=== PATIENT | female | born 1940 | race Caucasian/White ===

== ENCOUNTER 2019-10-09 05:37 | Inpatient (IN) | payer SELFPAY ==
[~2019-10-09] VITALS: Ht 149.9 cm; Wt 68.5 kg
[2019-10-09] MEDS ORDERED: SODIUM CHLORIDE 0.9% 1,000 ML IV ONE (06:25)
[2019-10-09 06:36] LABS: EOSINOPHILS % 3.1 % (0.0-5.0); HEMATOCRIT. 36.8 % (36.0-48.0); HEMOGLOBIN. 12.4 g/dL (12.0-16.0); MEAN CORPUSCULAR HEMOGLOBIN 28.7 pg (28.0-32.0); MEAN CORPUSCULAR VOLUME 85.3 fL (81.0-99.0); MEAN PLATELET VOLUME 9.5 fl (7.4-10.4); MONOCYTES % 7.3 % (2.0-8.0); NEUTROPHILS % 60.6 % (40.0-76.0); PLATELET 275 x1000/uL (130-400); RED BLOOD CELL COUNT 4.31 mill/uL (4.2-5.4)
[2019-10-09 06:38] LABS: CHLORIDE 111 mEq/L (98-107)
[2019-10-09 06:42] LABS: ETHANOL BLOOD < 10 mg/dL
[2019-10-09 06:57] LABS: CLARITY URINE CLEAR (CLEAR); COLOR URINE YELLOW (YELLOW); KETONES URINE NEGATIVE (NEGATIVE); LEUKOCYTE ESTERASE URINE 1+ (NEGATIVE); NITRITE URINE POSITIVE (NEGATIVE); OCCULT BLOOD URINE NEGATIVE (NEGATIVE); PH URINE 5.5 (4.5-8.0); PROTEIN URINE NEGATIVE (NEGATIVE); SPECIFIC GRAVITY URINE 1.006 (1.005-1.030); UROBILINOGEN URINE 0.2 E.U./dL (0.2-1.0)
[2019-10-09 07:13] LABS: *AMPHETAMINES SCREEN URINE NEGATIVE (NEGATIVE); *BENZODIAZEPINES SCREEN URINE NEGATIVE (NEGATIVE); *COCAINE SCREEN URINE NEGATIVE (NEGATIVE); METHADONE URINE SCREEN NEGATIVE (NEGATIVE); OPIATES URINE SCREEN NEGATIVE (NEGATIVE); PHENCYCLIDINE URINE SCREEN NEGATIVE (NEGATIVE)
[2019-10-09 07:14] LABS: *BARBITURATES SCREEN URINE NEGATIVE (NEGATIVE); CANNABINOID URINE SCREEN NEGATIVE (NEGATIVE)
[2019-10-09] MEDS ORDERED: PIPERACILLIN/TAZ 3.375G PREMIX 50 ML IV ONE (07:15)
[2019-10-09] MEDS ORDERED: SODIUM CHLORIDE 0.9% 1000ML BAG (SEPSIS BOLUS) IV ONE (07:15)
[2019-10-09] MEDS ORDERED: VANCOMYCIN 1 G PREMIX 200 ML IV ONE (07:15)
[2019-10-09 09:24] LABS: PROTHROMBIN TIME 10.6 sec (9.6-11.0)
[2019-10-09 11:10] VITALS: BP 152/75
[2019-10-09 11:17] VITALS: BP 152/75
[2019-10-09] MEDS ORDERED: GUAIFENESIN 200MG/10ML SUGAR FREE UDC PO PRN (11:30)
[2019-10-09] MEDS ORDERED: DOCUSATE SODIUM 100MG CAPSULE PO PRN (11:30)
[2019-10-09] MEDS ORDERED: ONDANSETRON HCL 4MG/2ML INJ IV PRN (11:30)
[2019-10-09] MEDS ORDERED: MAGNESIUM/ALUMINUM HYDROXIDE/SIMETHICONE 30ML UDC PO PRN (11:30)
[2019-10-09] MEDS ORDERED: NITROGLYCERIN 0.4MG TABLET SL SL PRN (11:30)
[2019-10-09] MEDS ORDERED: KETOROLAC 15MG/ML VIAL IV PRN (11:30)
[2019-10-09] MEDS ORDERED: CLONIDINE 0.1MG TABLET PO PRN (11:30)
[2019-10-09] MEDS ORDERED: IPRATROPIUM/ALBUTEROL 0.5-3(2.5)MG/3ML NEB ORI PRN (11:30)
[2019-10-09] MEDS ORDERED: ACETAMINOPHEN 325MG TABLET PO PRN ×2 (11:30)
[2019-10-09] MEDS ORDERED: ASPIRIN 325MG EC TABLET PO SCH (12:00)
[2019-10-09] MEDS: SODIUM CHLORIDE 0.9% 1,000 ML IV SCH ×2 (12:01→23:40)
[2019-10-09] MEDS: ENOXAPARIN 40MG/0.4ML SYR SUBCUT SCH (12:02)
[2019-10-09] MEDS: ZINC SULFATE 220 MG ( 50 ) CAPSULE PO SCH (12:03)
[2019-10-09] MEDS: METOPROLOL TARTRATE 25MG TABLET PO SCH ×2 (12:03→21:33)
[2019-10-09] MEDS: ASCORBIC ACID 500 MG TABLET PO SCH ×2 (12:04→21:34)
[2019-10-09 12:13] LABS: FOLIC ACID (FOLATE) SERUM 15.3 ng/mL (>5.38)
[2019-10-09] MEDS: CEFTRIAXONE 1 G PREMIX 50 ML IV SCH (13:28)
[2019-10-09] MEDS ORDERED: LEVOFLOXACIN 500MG PREMIX 100 ML IV NR (14:00)
[2019-10-09 16:00] VITALS: BP 151/88
[2019-10-09 16:44] LABS: CREATINE KINASE MB FRACTION < 1.0 ng/mL (0.5-3.6)
[2019-10-09 16:49] LABS: CREATINE KINASE 52 IU/L (26-192)
[2019-10-09 20:00] VITALS: BP 149/57
[2019-10-09] MEDS: FAMOTIDINE 20MG TABLET PO SCH (21:34)
[2019-10-09 23:38] LABS: CREATINE KINASE 58 IU/L (26-192)
[2019-10-09 23:39] LABS: CREATINE KINASE MB FRACTION < 1.0 ng/mL (0.5-3.6)
[2019-10-10] VITALS (7 sets, daily range): BP systolic 112–141; BP diastolic 54–82
[2019-10-10] MEDS: ZINC SULFATE 220 MG ( 50 ) CAPSULE PO SCH (10:26)
[2019-10-10] MEDS: ASCORBIC ACID 500 MG TABLET PO SCH ×2 (10:26→20:56)
[2019-10-10] MEDS: METOPROLOL TARTRATE 25MG TABLET PO SCH ×2 (10:27→20:56)
[2019-10-10] MEDS: CLOPIDOGREL 75MG TABLET PO SCH (10:27)
[2019-10-10] MEDS: LEVOFLOXACIN 250MG PREMIX 50 ML IV SCH (10:28)
[2019-10-10] MEDS: CEFTRIAXONE 1 G PREMIX 50 ML IV SCH (12:14)
[2019-10-10] MEDS: ENOXAPARIN 40MG/0.4ML SYR SUBCUT SCH (12:16)
[2019-10-10] MEDS: SODIUM CHLORIDE 0.9% 1,000 ML IV SCH (13:19)
[2019-10-10] MEDS: FAMOTIDINE 20MG TABLET PO SCH (20:56)
[2019-10-10] MEDS: ATORVASTATIN CALCIUM 10MG TABLET PO SCH (20:56)
[2019-10-10] MEDS: ZOLPIDEM TARTRATE 5MG TABLET PO PRN (22:37)
[2019-10-11] VITALS (12 sets, daily range): BP systolic 117–160; BP diastolic 41–116
[2019-10-11] MEDS: SODIUM CHLORIDE 0.9% 1,000 ML IV SCH ×2 (01:46→16:51)
[2019-10-11] MEDS: ZINC SULFATE 220 MG ( 50 ) CAPSULE PO SCH (08:15)
[2019-10-11] MEDS: ASCORBIC ACID 500 MG TABLET PO SCH ×2 (08:15→21:18)
[2019-10-11] MEDS: CLOPIDOGREL 75MG TABLET PO SCH (08:15)
[2019-10-11] MEDS: METOPROLOL TARTRATE 25MG TABLET PO SCH ×2 (08:16→21:18)
[2019-10-11] MEDS: ENOXAPARIN 40MG/0.4ML SYR SUBCUT SCH (12:12)
[2019-10-11] MEDS: LEVOFLOXACIN 250MG PREMIX 50 ML IV SCH (12:12)
[2019-10-11] MEDS: CEFTRIAXONE 1 G PREMIX 50 ML IV SCH (14:37)
[2019-10-11] MEDS: ATORVASTATIN CALCIUM 10MG TABLET PO SCH (21:18)
[2019-10-11] MEDS: ZOLPIDEM TARTRATE 5MG TABLET PO PRN (21:18)
[2019-10-11] MEDS: FAMOTIDINE 20MG TABLET PO SCH (21:18)
[2019-10-12] VITALS: BP 129/114
[2019-10-12] MEDS: SODIUM CHLORIDE 0.9% 1,000 ML IV SCH ×2 (05:20→20:07)
[2019-10-12 08:00] VITALS: BP 126/67
[2019-10-12] MEDS: ZINC SULFATE 220 MG ( 50 ) CAPSULE PO SCH (08:54)
[2019-10-12] MEDS: METOPROLOL TARTRATE 25MG TABLET PO SCH ×2 (08:54→20:04)
[2019-10-12] MEDS: ASCORBIC ACID 500 MG TABLET PO SCH ×2 (08:54→20:02)
[2019-10-12] MEDS: CLOPIDOGREL 75MG TABLET PO SCH (08:54)
[2019-10-12] MEDS: ENOXAPARIN 40MG/0.4ML SYR SUBCUT SCH (11:56)
[2019-10-12] MEDS: LEVOFLOXACIN 250MG PREMIX 50 ML IV SCH (11:57)
[2019-10-12 12:02] VITALS: BP 115/49
[2019-10-12] MEDS: CEFTRIAXONE 1 G PREMIX 50 ML IV SCH (15:18)
[2019-10-12 16:00] VITALS: BP 128/62
[2019-10-12 20:00] VITALS: BP 130/45
[2019-10-12] MEDS: FAMOTIDINE 20MG TABLET PO SCH (20:02)
[2019-10-12] MEDS ORDERED: ATORVASTATIN CALCIUM 10MG TABLET PO SCH (21:00)
[2019-10-12 22:00] VITALS: BP 112/59
[2019-10-13] VITALS (8 sets, daily range): BP systolic 119–170; BP diastolic 35–93
[2019-10-13] MEDS: METOPROLOL TARTRATE 25MG TABLET PO SCH (08:50)
[2019-10-13] MEDS: SODIUM CHLORIDE 0.9% 1,000 ML IV SCH (08:50)
[2019-10-13] MEDS: ASCORBIC ACID 500 MG TABLET PO SCH (08:50)
[2019-10-13] MEDS: ZINC SULFATE 220 MG ( 50 ) CAPSULE PO SCH (08:50)
[2019-10-13] MEDS: CLOPIDOGREL 75MG TABLET PO SCH (08:53)
[2019-10-13] MEDS: ENOXAPARIN 40MG/0.4ML SYR SUBCUT SCH (12:04)
[2019-10-13] MEDS: LEVOFLOXACIN 250MG PREMIX 50 ML IV SCH (12:04)
[2019-10-13] MEDS: CEFTRIAXONE 1 G PREMIX 50 ML IV SCH (16:08)
== END 2019-10-13 17:30 | disposition home or self-care (01) | DRG 720 ==
LOC: ER 05:57 → 5EST 08:59 → EDBEDREQ 09:02 → EDBEDREQSVC 09:02 → EDBEDREQTM 09:02 → ENRESERV 10:21
PROVIDERS: ADMIT Internal Medicine; ATTEND Internal Medicine
DX: A41.9 Sepsis, unspecified organism (principal); I63.512 Cerebral infarction due to unspecified occlusion or stenosis of left middle cerebral artery; G92 Toxic encephalopathy; R65.20 Severe sepsis without septic shock; E44.1 Mild protein-calorie malnutrition; E78.00 Pure hypercholesterolemia, unspecified; G81.91 Hemiplegia, unspecified affecting right dominant side; N39.0 Urinary tract infection, site not specified; R26.9 Unspecified abnormalities of gait and mobility; R47.81 Slurred speech; Z79.899 Other long term (current) drug therapy; Z68.30 Body mass index [BMI] 30.0-30.9, adult; Z79.02 Long term (current) use of antithrombotics/antiplatelets
CPT/HCPCS: 36415; 70544; 70551; 71045; 80053; 80061; 80305; 80320; 81003; 82550; 82553; 82607; 82746; 83036; 83540; 83550; 83605; 84145; 84443; 84481; 84484; 85025; 92523; 92610; 93005; 93306; 93880; 93970; 97162; 97166; 97535; 99291; J0696; J1650; J1956; J2405; J2543; J3370; J7030; G0480